=== PATIENT | female | born 1990 | race Caucasian/White ===

== ENCOUNTER 2024-11-01 12:00 | Outpatient (RCR) | payer OTHER, SELFPAY ==
[2024-10-30 09:34] VITALS: BMI 45.5
[2024-10-30 09:35] VITALS: BP 106/74; PULSE 68; TEMP 36.7
--- NOTE | 2024-10-30 10:25 | PC.ADMIT ---
Patient is a 34 year old female who was referred to [facility] by her therapist d/t increased depression and anxiety sxs. Patient reports that she is from her since 2020 and is unsure what is going on in regards to her seeking an erisa attorney to go through with divorce proceedings. Patient reports she is in a new relationship for the past three months and her current partner is living with her. She reports financial issues as well. According to [facility] patient has history of inpatient LOC every year for the past three years. Patient stated she is trying to avoid hospitalization. Patient on medical leave from work. Working at [id number]. Patient has been with them since July 2024. Patient identified her supports as being her partner and mother. Patient is alert and oriented x4. She is calm and cooperative. She presented with depressed mood and anxious affect. She denied SI, no HI. She was given a copy of her safety plan if needed. Medications updated with patient and patient's pharmacy. Patient reports she uses Marijuana gummies (different amounts) nightly to sleep. Sometimes uses during the day.
--- NOTE | 2024-10-31 14:15 | PC.NURSE ---
Terrie left program after the first group. She told staff that she needed to go home as she was having stomach issues and forgot to take her morning medications. I called Terrie to f/u. She stated her stomach was in knots as she forgot to take her morning medications. She denied any safety issues and is planning on coming to the program tomorrow. Discussed ways to remember to take medications daily.
--- NOTE | 2024-11-02 15:09 | HO.PHP ---
Case was reviewed on teams.
== END 2024-11-01 23:59 | disposition home or self-care (01) ==
LOC: HO.PHPA 12:00
PROVIDERS: Visit Provider Psychiatry & Neurology Psychiatry
DX: F31.30 Bipolar disorder, current episode depressed, mild or moderate severity, unspecified (principal); F90.9 Attention-deficit hyperactivity disorder, unspecified type; F43.12 Post-traumatic stress disorder, chronic; F41.1 Generalized anxiety disorder
CPT/HCPCS: 90791; 90853